=== PATIENT | male | born 1950 | race Caucasian/White ===

== ENCOUNTER 2019-09-22 13:34 | Emergency (ER) | payer OTHER ==
[2019-09-22 14:03] VITALS: BP 139/63
--- NOTE | 2019-09-22 14:04 | UC ---
Lower Extremity/Ankle HPI - HPI Summary HPI Summary: Patient is a 68yo male presenting with c/o R dorsal foot pain after slipping and falling on ice this morning while shoveling snow. He states pain was mild at first and gradually worsened over the past few hours. Notes pain is worse around first metacarpal. Denies numbness and tingling. Notes pain worse with weightbearing and is unable to walk. Patient notes swelling over her dorsal foot. Denies bruising. Notes bunionectomy a few years ago with no other prior injury. States he iced the area with little relief of pain. Denies ankle pain. - History of Current Complaint Chief Complaint: UCLowerExtremity Stated Complaint: R FOOT INJ Hx Obtained From: Patient Onset/Duration: Sudden Onset Severity Currently: Severe Pain Intensity: 10 Pain Scale Used: 0-10 Numeric - Allergies/Home Medications Allergies/Adverse Reactions: Allergies Allergy/AdvReac Type Severity Reaction Status Date / Time No Known Allergies Allergy Verified 09/22/19 13:57 PMH/Surg Hx/FS Hx/Imm Hx - Surgical History Surgical History: Unable to Obtain/Confirm - Family History Known Family History: Positive: Non-Contributory - Social History Lives: With Family Alcohol Use: Weekly Substance Use Type: None Smoking Status (MU): Former Smoker Length of Time of Smoking/Using Tobacco: <1/2 PPD x 20 Years When Did the Patient Quit Smoking/Using Tobacco: ~2003 Review of Systems All Other Systems Reviewed And Are Negative: Yes Constitutional: Positive: Negative Skin: Negative: Bruising Respiratory: Positive: Negative Cardiovascular: Positive: Negative Neurovascular: Positive: Negative Musculoskeletal: Positive: Arthralgia - R dorsal foot pain worse over 1st metatarsal, Decreased ROM - R great toe d/t pain, Edema - R dorsal foot Neurological: Negative: Paresthesia, Numbness Physical Exam Triage Information Reviewed: Yes Appearance: Well-Appearing, No Pain Distress, Well-Nourished Vital Signs: Initial Vital Signs Temp 98.7 F 09/22/19 13:55 Pulse 86 09/22/19 13:55 Resp 20 09/22/19 13:55 BP 139/63 09/22/19 13:55 Pulse Ox 96 09/22/19 13:55 Vital Signs Reviewed: Yes Eyes: Positive: Conjunctiva Clear ENT: Positive: Hearing grossly normal Neck: Positive: Supple Respiratory: Positive: No respiratory distress Cardiovascular: Positive: Pulses Normal - strong pedal pulses b/l, Brisk Capillary Refill - <2 sec Musculoskeletal: Positive: ROM Limited @ - R great toe flexion d/t pain, Edema @ - R dorsal foot, more over 1st metatarsal, Other: - tenderness to palpation of great toe and diffuse tenderness over entire dorsal R foot Neurological Exam: Other - sensation grossly intact Neurological: Positive: Alert Psychological: Positive: Age Appropriate Behavior Skin Exam: Other - no erythema or ecchymosis noted. old scar over 1st MTP joint of R foot from bunionectomy sugery Diagnostics - Radiology R foot Radiology Interpretation Completed By: Radiologist Summary of Radiographic Findings: IMPRESSION: #. Negative for fracture. Lower Extremity Course/Dx - Course Course Of Treatment: Discussed negative foot xrays with patient. Instructed to use rest, ice, elevation, and post op shoe to help relieve pain. If pain does not resolve, instructed to follow up with PCP. Directed to return or go to the emergency room if pain worsens, the foot becomes cold and numb, or patient is unable to bear weight. - Differential Dx/Diagnosis Differential Diagnosis/HQI/PQRI: Contusion, Fracture (Closed), Strain Provider Diagnosis: Right foot sprain Discharge ED - Sign-Out/Discharge Documenting (check all that apply): Patient Departure All imaging exams completed and their final reports reviewed: Yes - Discharge Plan Condition: Stable Disposition: HOME Patient Education Materials: Foot Sprain (ED) Referrals: Isaias Miller MD [Primary Care Provider] - If Needed Additional Instructions: As discussed, no fractures were found on xray today. Wear the post op shoe to help provide support and relieve pain while walking. Continue to rest, ice, and elevate the foot. Follow up with your primary care physician if pain persists. - Billing Disposition and Condition Condition: STABLE Disposition: Home
== END 2019-09-22 14:50 | disposition home or self-care (01) ==
LOC: UCCORT 13:34
DX: S93.691A Other sprain of right foot, initial encounter (principal); Z87.891 Personal history of nicotine dependence; W00.0XXA Fall on same level due to ice and snow, initial encounter; Y93.H1 Activity, digging, shoveling and raking; Y92.9 Unspecified place or not applicable
CPT/HCPCS: 99213; G0463